=== PATIENT | female | born 1990 | race Caucasian/White ===

== ENCOUNTER 2021-06-26 15:50 | Inpatient (IN) ==
[2021-06-26] MEDS ORDERED: Acetaminophen 325 MG TABLET PO PRN (20:09)
[2021-06-26] MEDS ORDERED: Naloxone 0.4 MG/ML INJ IVP PRN (20:09)
[2021-06-26] MEDS ORDERED: Ondansetron 4 MG/2 ML VIAL IVP PRN (20:09)
[2021-06-26] MEDS ORDERED: Saliva Stimulant 44.3ml BOTTLE PO PRN (20:36)
[2021-06-26] MEDS ORDERED: Saline Nasal Spray 44 ML BOTTLE NS PRN (20:36)
[2021-06-26] MEDS ORDERED: Atropine Sulfate 1% 40 DROP/2 ML BOTTLE SL PRN (21:21)
[2021-06-26] MEDS ORDERED: Scopolamine Patch 1.5 MG PATCH.TD72 TD SCH (21:30)
[2021-06-26] MEDS: *HR* Heparin 5,000 UNIT/ML VIAL SQ SCH (21:59)
[2021-06-26] MEDS: Chlorhexidine Rinse 15 ML MOUTHWASH MM SCH (21:59)
[2021-06-26] MEDS: Melatonin 3 MG TABLET PO PRN (22:00)
[2021-06-26] MEDS: Ipratropium 1 PUFF INHALER IH SCH (23:20)
[2021-06-26] MEDS: Budesonide/Formoterol 160/4.5 1 PUFF INH IH SCH (23:20)
[2021-06-27] MEDS: Ipratropium 1 PUFF INHALER IH SCH ×4 (04:08→20:34)
[2021-06-27] MEDS: *HR* Heparin 5,000 UNIT/ML VIAL SQ SCH ×2 (05:35→17:20)
[2021-06-27 05:41] LABS: Basophils % 0.7 %; Eosinophils % 0.2 %; Hematocrit 40.4 % (35.3-44.9); Hemoglobin 12.7 g/dL (11.5-15.4); Immature Granulocytes % 1.5 % (0-4); Lymphocytes # 0.7 K/mcL (0.6-4.6); Lymphocytes % 11.5 %; Mean Corpuscular HGB Conc 31.4 g/dL (31.6-35.5); Mean Corpuscular Hemoglobin 29.3 pg (28.0-33.3); Mean Corpuscular Volume 93.1 fL (83.0-100.0); Mean Platelet Volume 11.8 fL (9.4-12.4); Monocytes # 0.1 K/mcL (0.0-1.3); Monocytes % 2.3 %; Platelet Count 194 K/mcL (140-400); Red Blood Count 4.34 M/mcL (3.82-4.97); Red Cell Distribution Width 15.5 % (11.5-14.5); Segmented Neutrophils % 83.8 %
[2021-06-27] MEDS: Budesonide/Formoterol 160/4.5 1 PUFF INH IH SCH ×2 (07:44→20:34)
[2021-06-27] MEDS: Cholecalciferol (D-3) 1,000 UNIT (25MCG) TABLET PO SCH (08:03)
[2021-06-27] MEDS: Chlorhexidine Rinse 15 ML MOUTHWASH MM SCH ×2 (08:03→23:11)
[2021-06-27] MEDS: Multivit/Ca/Min/Fe/FA 1 TAB TABLET PO SCH (08:03)
[2021-06-27] MEDS: Artificial Tears SOLN 15 ML BOTTLE BOTH EYES SCH ×4 (08:04→23:11)
[2021-06-27 08:18] LABS: Albumin 3.8 g/dL (3.5-5.7); Albumin/Globulin Ratio 1.3 (1.1-2.2); Bilirubin,Total 0.8 mg/dL (0.3-1.0); Calcium 8.1 mg/dL (8.6-10.3); Magnesium 1.8 mg/dL (1.6-2.6); Potassium 3.7 mEq/L (3.5-5.1); Total Protein 6.8 g/dL (6.4-8.9)
[2021-06-27 08:40] LABS: Thyroid Stimulating Hormone 207.768 mcIU/mL (0.340-5.600)
[2021-06-27] MEDS: 0.9 % Sodium Chloride 1,000 ML IVC SCH ×2 (17:20→23:12)
[2021-06-27] MEDS: Acetaminophen 325 MG TABLET PO PRN (19:37)
[2021-06-28] MEDS: Melatonin 3 MG TABLET PO PRN ×2 (00:30→21:44)
[2021-06-28] MEDS: Acetaminophen 325 MG TABLET PO PRN (03:13)
[2021-06-28 03:16] LABS: Basophils % 0.4 %; Hematocrit 39.6 % (35.3-44.9); Hemoglobin 12.4 g/dL (11.5-15.4); Immature Granulocytes % 1.5 % (0-4); Lymphocytes # 0.9 K/mcL (0.6-4.6); Lymphocytes % 12.1 %; Mean Corpuscular HGB Conc 31.3 g/dL (31.6-35.5); Mean Corpuscular Hemoglobin 29.7 pg (28.0-33.3); Mean Corpuscular Volume 94.7 fL (83.0-100.0); Mean Platelet Volume 11.8 fL (9.4-12.4); Monocytes # 0.2 K/mcL (0.0-1.3); Neutrophils # 6.3 K/mcL (1.6-8.9); Platelet Count 213 K/mcL (140-400); Red Blood Count 4.18 M/mcL (3.82-4.97); Red Cell Distribution Width 15.6 % (11.5-14.5); White Blood Count 7.5 K/mcL (4.3-11.1)
[2021-06-28 03:33] LABS: Albumin 3.9 g/dL (3.5-5.7); Albumin/Globulin Ratio 1.3 (1.1-2.2); Bilirubin,Total 0.6 mg/dL (0.3-1.0); Calcium 8.2 mg/dL (8.6-10.3); Magnesium 1.9 mg/dL (1.6-2.6); Phosphorous 3.4 mg/dL (2.7-4.5); Potassium 3.2 mEq/L (3.5-5.1); Total Protein 6.9 g/dL (6.4-8.9)
[2021-06-28 03:35] LABS: C-Reactive Protein 84 mg/L (Less than 10); Lactate Dehydrogenase 527 Units/L (140-271)
[2021-06-28 03:52] LABS: Ferritin 226 ng/mL (10-120)
[2021-06-28] MEDS: Ipratropium 1 PUFF INHALER IH SCH ×4 (04:24→20:21)
[2021-06-28 05:11] LABS: Platelet Estimate Normal (Normal); Reactive Lymphocytes Present (Not Present)
[2021-06-28] MEDS: *HR* Heparin 5,000 UNIT/ML VIAL SQ SCH ×2 (06:36→21:56)
[2021-06-28] MEDS: Budesonide/Formoterol 160/4.5 1 PUFF INH IH SCH ×2 (08:19→20:21)
[2021-06-28] MEDS: Chlorhexidine Rinse 15 ML MOUTHWASH MM SCH ×2 (10:32→19:56)
[2021-06-28] MEDS: 0.9 % Sodium Chloride 1,000 ML IVC SCH ×3 (10:32→23:22)
[2021-06-28] MEDS: Artificial Tears SOLN 15 ML BOTTLE BOTH EYES SCH ×4 (10:32→19:56)
[2021-06-28] MEDS: Multivit/Ca/Min/Fe/FA 1 TAB TABLET PO SCH (10:33)
[2021-06-28] MEDS: Cholecalciferol (D-3) 1,000 UNIT (25MCG) TABLET PO SCH (10:33)
[2021-06-28] MEDS ORDERED: Azithromycin 500 MG in 0.9 % Sodium Chloride 250 ML IVPB SCH (17:00)
[2021-06-28] MEDS ORDERED: cefTRIAXone 2,000 MG in 0.9 % Sodium Chloride Mini Bag 100 ML IVPB SCH (17:00)
[2021-06-28] MEDS ORDERED: *HR* Enoxaparin 150 MG/ML SYRINGE SQ SCH (17:00)
[2021-06-28] MEDS ORDERED: *HR* LORazepam 2 MG/ML VIAL IVP PRN (17:01)
[2021-06-28 17:32] LABS: ABG Base Excess 0 mEq/L (-2 to 3); ABG HCO3 25 mEq/L (21-27); ABG Oxygen Saturation 84 % (95-98); ABG PCO2 41 mmHg (35-45); ABG PH 7.39 pH Units (7.32-7.45); ABG PO2 49 mmHg (85-104); ABG TCO2 26 mEq/L (20-26)
[2021-06-28 20:16] LABS: Sodium, Urine 10.5 mEq/L
[2021-06-28] MEDS ORDERED: Ascorbic Acid 500 MG TABLET PO SCH (21:00)
[2021-06-29 02:30] LABS: Basophils % 0.3 %; Hematocrit 37.5 % (35.3-44.9); Hemoglobin 11.6 g/dL (11.5-15.4); Lymphocytes # 0.6 K/mcL (0.6-4.6); Lymphocytes % 8.4 %; Mean Corpuscular HGB Conc 30.9 g/dL (31.6-35.5); Mean Corpuscular Hemoglobin 29.3 pg (28.0-33.3); Mean Corpuscular Volume 94.7 fL (83.0-100.0); Mean Platelet Volume 11.5 fL (9.4-12.4); Monocytes # 0.2 K/mcL (0.0-1.3); Monocytes % 2.1 %; Neutrophils # 6.1 K/mcL (1.6-8.9); Platelet Count 259 K/mcL (140-400); Red Blood Count 3.96 M/mcL (3.82-4.97); Red Cell Distribution Width 15.6 % (11.5-14.5); Segmented Neutrophils % 87.2 %
[2021-06-29 02:58] LABS: Albumin 3.6 g/dL (3.5-5.7); Albumin/Globulin Ratio 1.2 (1.1-2.2); Bilirubin,Total 0.5 mg/dL (0.3-1.0); Globulin 3.1 g/dL (2.4-3.5); Magnesium 1.9 mg/dL (1.6-2.6); Phosphorous 4.2 mg/dL (2.7-4.5); Potassium 3.9 mEq/L (3.5-5.1); Total Protein 6.7 g/dL (6.4-8.9)
[2021-06-29 03:03] LABS: C-Reactive Protein 110 mg/L (Less than 10); Lactate Dehydrogenase 816 Units/L (140-271)
[2021-06-29 03:18] LABS: Ferritin 379 ng/mL (10-120)
[2021-06-29] MEDS: Ipratropium 1 PUFF INHALER IH SCH ×3 (03:47→21:03)
[2021-06-29] MEDS: Artificial Tears SOLN 15 ML BOTTLE BOTH EYES SCH (08:00)
[2021-06-29] MEDS: Cholecalciferol (D-3) 1,000 UNIT (25MCG) TABLET PO SCH (08:00)
[2021-06-29] MEDS: Chlorhexidine Rinse 15 ML MOUTHWASH MM SCH (08:00)
[2021-06-29] MEDS: 0.9 % Sodium Chloride 1,000 ML IVC SCH ×3 (08:01→15:16)
[2021-06-29] MEDS ORDERED: *HR* Rocuronium Bromide 50 MG/5 ML VIAL IVP ONE (11:50)
[2021-06-29] MEDS ORDERED: *HR* Succinylcholine 200 MG/10 ML VIAL IVP ONE (11:50)
[2021-06-29] MEDS ORDERED: *HR* Etomidate 20 MG/10 ML AMPUL IVP ONE (11:50)
[2021-06-29] MEDS ORDERED: *HR* Midazolam HCl 5 MG/5 ML VIAL IVP ONE (11:50)
[2021-06-29] MEDS ORDERED: *HR* Midazolam HCl 2 MG/2 ML VIAL IVP ONE (11:50)
[2021-06-29] MEDS ORDERED: Naloxone 0.4 MG/ML INJ IVP PRN (12:22)
[2021-06-29] MEDS ORDERED: *HR* LORazepam 2 MG/ML VIAL IVP PRN (12:24)
[2021-06-29] MEDS ORDERED: Acetaminophen 325 MG TABLET PO PRN (12:27)
[2021-06-29 12:30] LABS: ABG Base Excess -3 mEq/L (-2 to 3); ABG HCO3 24 mEq/L (21-27); ABG Oxygen Saturation 86 % (95-98); ABG PCO2 48 mmHg (35-45); ABG PO2 58 mmHg (85-104); ABG TCO2 25 mEq/L (20-26); Blood Gas Pressure Support 15 cm H2O
[2021-06-29] MEDS ORDERED: Morphine Sulfate 2 MG/ML SYRINGE IVP PRN (12:31)
[2021-06-29] MEDS ORDERED: *HR* Enoxaparin 150 MG/ML SYRINGE SQ SCH (12:45)
[2021-06-29] MEDS: Budesonide/Formoterol 160/4.5 1 PUFF INH IH SCH ×2 (15:12→21:02)
[2021-06-29] MEDS ORDERED: Lidocaine -MPF 1% 5 ML AMPUL INFILT ONE (15:22)
[2021-06-29] MEDS ORDERED: Albumin Human 5% 12.5 GM/250 ML IV.SOLN ONE (16:03)
[2021-06-29] MEDS: cefTRIAXone 2,000 MG in 0.9 % Sodium Chloride Mini Bag 100 ML IVPB SCH (16:04)
[2021-06-29] MEDS ORDERED: Norepinephrine 4 MG/254 ML IV.SOLN IVC SCH (16:15)
[2021-06-29] MEDS: Midazolam HCl 50 MG/100 ML IV.SOLN IVC SCH ×2 (16:36→23:10)
[2021-06-29] MEDS: FentaNYL (PF) 1,000 MCG/100 ML IV.SOLN IVC SCH ×2 (16:37→23:11)
[2021-06-29] MEDS: Cisatracurium 200 MG in 0.9 % Sodium Chloride 180 ML IVC SCH ×2 (16:40→21:32)
[2021-06-29] MEDS ORDERED: 0.9 % Sodium Chloride 1,000 ML ONE (17:01)
[2021-06-29] MEDS: Azithromycin 500 MG in 0.9 % Sodium Chloride 250 ML IVPB SCH (20:33)
[2021-06-29] MEDS: *HR* Enoxaparin 150 MG/ML SYRINGE SQ SCH (20:33)
[2021-06-29] MEDS: Melatonin 3 MG TABLET PO SCH (20:34)
[2021-06-29 21:05] LABS: ABG Base Excess -4 mEq/L (-2 to 3); ABG HCO3 23 mEq/L (21-27); ABG Oxygen Saturation 98 % (95-98); ABG PCO2 45 mmHg (35-45); ABG PH 7.31 pH Units (7.32-7.45); ABG PO2 121 mmHg (85-104); ABG TCO2 24 mEq/L (20-26); Blood Gas VT 450 cc
[2021-06-30] MEDS: Ipratropium 1 PUFF INHALER IH SCH ×4 (03:32→21:24)
[2021-06-30 04:08] LABS: VBG Ionized Calcium 1.14 mmol/L (1.15-1.35)
[2021-06-30 04:12] LABS: Hematocrit 35.1 % (35.3-44.9); Hemoglobin 10.9 g/dL (11.5-15.4); Mean Corpuscular HGB Conc 31.1 g/dL (31.6-35.5); Mean Corpuscular Hemoglobin 29.5 pg (28.0-33.3); Mean Corpuscular Volume 94.9 fL (83.0-100.0); Mean Platelet Volume 11.3 fL (9.4-12.4); Platelet Count 268 K/mcL (140-400); Red Cell Distribution Width 15.6 % (11.5-14.5); White Blood Count 9.7 K/mcL (4.3-11.1)
[2021-06-30 04:22] LABS: ABG Base Excess -4 mEq/L (-2 to 3); ABG HCO3 22 mEq/L (21-27); ABG Oxygen Saturation 99 % (95-98); ABG PCO2 42 mmHg (35-45); ABG PH 7.32 pH Units (7.32-7.45); ABG PO2 137 mmHg (85-104); ABG TCO2 23 mEq/L (20-26); Blood Gas Modality AF; Blood Gas VT 350 cc
[2021-06-30 04:30] LABS: Albumin 3.2 g/dL (3.5-5.7); Albumin/Globulin Ratio 1.1 (1.1-2.2); Bilirubin,Direct 0.1 mg/dL (0.0-0.2); Bilirubin,Indirect 0.2 mg/dL (0.0-1.0); Bilirubin,Total 0.3 mg/dL (0.3-1.0); Calcium 8.2 mg/dL (8.6-10.3); Magnesium 2.1 mg/dL (1.6-2.6); Phosphorous 3.5 mg/dL (2.7-4.5); Potassium 3.9 mEq/L (3.5-5.1); Total Protein 6.2 g/dL (6.4-8.9)
[2021-06-30] MEDS: Cisatracurium 200 MG in 0.9 % Sodium Chloride 180 ML IVC SCH ×4 (04:33→19:29)
[2021-06-30] MEDS: *HR* Enoxaparin 150 MG/ML SYRINGE SQ SCH ×2 (05:56→18:04)
[2021-06-30] MEDS ORDERED: Levothyroxine Sodium 200 MCG VIAL IVP SCH (06:30)
[2021-06-30] MEDS: Budesonide/Formoterol 160/4.5 1 PUFF INH IH SCH ×2 (07:30→21:24)
[2021-06-30] MEDS: Midazolam HCl 50 MG/100 ML IV.SOLN IVC SCH ×2 (08:22→17:00)
[2021-06-30] MEDS: FentaNYL (PF) 1,000 MCG/100 ML IV.SOLN IVC SCH ×2 (08:22→21:45)
[2021-06-30] MEDS ORDERED: Artificial Tears SOLN 15 ML BOTTLE BOTH EYES PRN (09:12)
[2021-06-30] MEDS: Chlorhexidine Rinse 15 ML MOUTHWASH MM SCH ×2 (10:02→19:47)
[2021-06-30] MEDS: Artificial Tears SOLN 15 ML BOTTLE BOTH EYES SCH ×3 (10:02→19:47)
[2021-06-30] MEDS: cefTRIAXone 2,000 MG in 0.9 % Sodium Chloride Mini Bag 100 ML IVPB SCH (16:20)
[2021-06-30] MEDS: Azithromycin 500 MG in 0.9 % Sodium Chloride 250 ML IVPB SCH (18:04)
[2021-06-30] MEDS: Melatonin 3 MG TABLET PO SCH (19:48)
[2021-06-30] MEDS: Pantoprazole 40 MG VIAL IVP SCH (21:15)
[2021-07-01] MEDS: Artificial Tears SOLN 15 ML BOTTLE BOTH EYES SCH ×6 (00:26→19:51)
[2021-07-01] MEDS: Cisatracurium 200 MG in 0.9 % Sodium Chloride 180 ML IVC SCH ×3 (01:03→21:45)
[2021-07-01] MEDS: Ipratropium 1 PUFF INHALER IH SCH ×4 (03:20→22:28)
[2021-07-01 03:34] LABS: VBG Ionized Calcium 1.15 mmol/L (1.15-1.35)
[2021-07-01 03:49] LABS: Hematocrit 35.8 % (35.3-44.9); Hemoglobin 10.9 g/dL (11.5-15.4); Mean Corpuscular HGB Conc 30.4 g/dL (31.6-35.5); Mean Corpuscular Hemoglobin 28.9 pg (28.0-33.3); Mean Platelet Volume 11.2 fL (9.4-12.4); Platelet Count 306 K/mcL (140-400); Red Blood Count 3.77 M/mcL (3.82-4.97); Red Cell Distribution Width 15.4 % (11.5-14.5); White Blood Count 12.2 K/mcL (4.3-11.1)
[2021-07-01 04:02] LABS: Albumin 3.2 g/dL (3.5-5.7); Albumin/Globulin Ratio 1.1 (1.1-2.2); Bilirubin,Total 0.4 mg/dL (0.3-1.0); Calcium 8.5 mg/dL (8.6-10.3); Globulin 2.8 g/dL (2.4-3.5); Magnesium 2.1 mg/dL (1.6-2.6); Phosphorous 2.8 mg/dL (2.7-4.5); Potassium 3.8 mEq/L (3.5-5.1)
[2021-07-01 04:22] LABS: ABG Base Excess -3 mEq/L (-2 to 3); ABG HCO3 22 mEq/L (21-27); ABG Oxygen Saturation 93 % (95-98); ABG PCO2 42 mmHg (35-45); ABG PH 7.34 pH Units (7.32-7.45); ABG PO2 71 mmHg (85-104); ABG TCO2 24 mEq/L (20-26); Blood Gas VT 350 cc
[2021-07-01] MEDS: *HR* Enoxaparin 150 MG/ML SYRINGE SQ SCH (05:15)
[2021-07-01] MEDS: Levothyroxine Sodium 100 MCG VIAL IM SCH (06:40)
[2021-07-01] MEDS: Budesonide/Formoterol 160/4.5 1 PUFF INH IH SCH ×2 (07:26→22:28)
[2021-07-01] MEDS: Chlorhexidine Rinse 15 ML MOUTHWASH MM SCH ×2 (07:43→19:51)
[2021-07-01] MEDS: Pantoprazole 40 MG VIAL IVP SCH (07:44)
[2021-07-01] MEDS: FentaNYL (PF) 1,000 MCG/100 ML IV.SOLN IVC SCH ×3 (08:26→23:42)
[2021-07-01] MEDS: Midazolam HCl 50 MG/100 ML IV.SOLN IVC SCH ×2 (14:40→23:13)
[2021-07-01] MEDS ORDERED: Furosemide 40 MG/4 ML VIAL IVP ONE (14:59)
[2021-07-01] MEDS ORDERED: Perflutren Lipid Microsphere 1.3 ML in 0.9 % Sodium Chloride 8.7 ML IVP PRN (15:10)
[2021-07-01 16:36] LABS: Hematocrit 35.9 % (35.3-44.9); Mean Corpuscular HGB Conc 30.6 g/dL (31.6-35.5); Mean Corpuscular Hemoglobin 29.2 pg (28.0-33.3); Mean Corpuscular Volume 95.2 fL (83.0-100.0); Mean Platelet Volume 10.8 fL (9.4-12.4); Platelet Count 322 K/mcL (140-400); Red Blood Count 3.77 M/mcL (3.82-4.97); Red Cell Distribution Width 15.7 % (11.5-14.5); White Blood Count 12.1 K/mcL (4.3-11.1)
[2021-07-01] MEDS: cefTRIAXone 2,000 MG in 0.9 % Sodium Chloride Mini Bag 100 ML IVPB SCH (16:53)
[2021-07-01 16:54] LABS: INR 1.2
[2021-07-01 17:16] LABS: Heparin anti-factor XA UFH > 2.00 IU/mL (0.30-0.70)
[2021-07-01] MEDS ORDERED: *HR* Heparin 5,000 UNIT/ML VIAL IVP PRN ×2 (18:00)
[2021-07-01] MEDS: Azithromycin 500 MG in 0.9 % Sodium Chloride 250 ML IVPB SCH (18:24)
[2021-07-01] MEDS: Melatonin 3 MG TABLET PO SCH (19:51)
[2021-07-02] MEDS: Artificial Tears SOLN 15 ML BOTTLE BOTH EYES SCH ×7 (03:11→23:13)
[2021-07-02 03:26] LABS: ABG Ionized Calcium 1.16 mmol/L (1.15-1.35)
[2021-07-02 03:29] LABS: Hematocrit 34.4 % (35.3-44.9); Hemoglobin 10.8 g/dL (11.5-15.4); Mean Corpuscular HGB Conc 31.4 g/dL (31.6-35.5); Mean Corpuscular Volume 95.6 fL (83.0-100.0); Mean Platelet Volume 11.1 fL (9.4-12.4); Platelet Count 305 K/mcL (140-400); Red Cell Distribution Width 15.5 % (11.5-14.5); White Blood Count 12.2 K/mcL (4.3-11.1)
[2021-07-02 03:50] LABS: Albumin/Globulin Ratio 1.1 (1.1-2.2); Bilirubin,Total 0.5 mg/dL (0.3-1.0); Calcium 8.4 mg/dL (8.6-10.3); Globulin 2.8 g/dL (2.4-3.5); Heparin anti-factor XA UFH 1.39 IU/mL (0.30-0.70); Magnesium 2.1 mg/dL (1.6-2.6); Potassium 3.6 mEq/L (3.5-5.1); Total Protein 5.8 g/dL (6.4-8.9)
[2021-07-02] MEDS: Ipratropium 1 PUFF INHALER IH SCH ×4 (04:36→20:09)
[2021-07-02 04:41] LABS: ABG Base Excess -1 mEq/L (-2 to 3); ABG HCO3 24 mEq/L (21-27); ABG Oxygen Saturation 87 % (95-98); ABG PCO2 44 mmHg (35-45); ABG PH 7.35 pH Units (7.32-7.45); ABG PO2 57 mmHg (85-104); ABG TCO2 26 mEq/L (20-26); Blood Gas VT 350 cc
[2021-07-02] MEDS: Levothyroxine Sodium 100 MCG VIAL IM SCH (06:06)
[2021-07-02] MEDS: Cisatracurium 200 MG in 0.9 % Sodium Chloride 180 ML IVC SCH ×2 (06:58→15:06)
[2021-07-02] MEDS: FentaNYL (PF) 1,000 MCG/100 ML IV.SOLN IVC SCH ×3 (07:32→23:13)
[2021-07-02] MEDS: Chlorhexidine Rinse 15 ML MOUTHWASH MM SCH ×2 (07:40→20:43)
[2021-07-02] MEDS: Pantoprazole 40 MG VIAL IVP SCH (07:40)
[2021-07-02] MEDS: Budesonide/Formoterol 160/4.5 1 PUFF INH IH SCH ×2 (07:48→20:10)
[2021-07-02] MEDS: Midazolam HCl 50 MG/100 ML IV.SOLN IVC SCH ×2 (09:20→23:12)
[2021-07-02] MEDS: Heparin 25,000UNIT/250ML 1/2NS 25,000 UNIT/250 ML IV.SOLN IVC SCH ×3 (14:09→20:41)
[2021-07-02] MEDS: Norepinephrine 4 MG/254 ML IV.SOLN IVC SCH (14:25)
[2021-07-02] MEDS: cefTRIAXone 2,000 MG in 0.9 % Sodium Chloride Mini Bag 100 ML IVPB SCH (17:03)
[2021-07-02] MEDS: Azithromycin 500 MG in 0.9 % Sodium Chloride 250 ML IVPB SCH (18:07)
[2021-07-02] MEDS: Melatonin 3 MG TABLET PO SCH (20:41)
[2021-07-03] MEDS: Cisatracurium 200 MG in 0.9 % Sodium Chloride 180 ML IVC SCH ×3 (01:42→17:52)
[2021-07-03] MEDS: Norepinephrine 4 MG/254 ML IV.SOLN IVC SCH ×2 (01:53→15:14)
[2021-07-03] MEDS: Ipratropium 1 PUFF INHALER IH SCH ×4 (03:50→20:06)
[2021-07-03] MEDS: Artificial Tears SOLN 15 ML BOTTLE BOTH EYES SCH ×5 (03:54→19:42)
[2021-07-03 04:15] LABS: ABG Base Excess -3 mEq/L (-2 to 3); ABG HCO3 26 mEq/L (21-27); ABG Oxygen Saturation 84 % (95-98); ABG PCO2 63 mmHg (35-45); ABG PH 7.22 pH Units (7.32-7.45); ABG PO2 60 mmHg (85-104); ABG TCO2 28 mEq/L (20-26); Blood Gas VT 350 cc
[2021-07-03] MEDS: Heparin 25,000UNIT/250ML 1/2NS 25,000 UNIT/250 ML IV.SOLN IVC SCH (04:30)
[2021-07-03 05:23] LABS: VBG Ionized Calcium 1.15 mmol/L (1.15-1.35)
[2021-07-03 05:36] LABS: Heparin anti-factor XA UFH 1.13 IU/mL (0.30-0.70)
[2021-07-03 05:38] LABS: Hematocrit 36.8 % (35.3-44.9); Hemoglobin 10.7 g/dL (11.5-15.4); Mean Corpuscular HGB Conc 29.1 g/dL (31.6-35.5); Mean Corpuscular Hemoglobin 28.8 pg (28.0-33.3); Mean Corpuscular Volume 99.2 fL (83.0-100.0); Mean Platelet Volume 11.4 fL (9.4-12.4); Platelet Count 307 K/mcL (140-400); Red Blood Count 3.71 M/mcL (3.82-4.97); Red Cell Distribution Width 15.8 % (11.5-14.5); White Blood Count 14.7 K/mcL (4.3-11.1)
[2021-07-03 05:55] LABS: Albumin 2.8 g/dL (3.5-5.7); Bilirubin,Direct 0.3 mg/dL (0.0-0.2); Bilirubin,Indirect 0.3 mg/dL (0.0-1.0); Bilirubin,Total 0.6 mg/dL (0.3-1.0); Calcium 8.2 mg/dL (8.6-10.3); Globulin 2.7 g/dL (2.4-3.5); Magnesium 2.1 mg/dL (1.6-2.6); Phosphorous 3.6 mg/dL (2.7-4.5); Total Protein 5.5 g/dL (6.4-8.9)
[2021-07-03] MEDS: Budesonide/Formoterol 160/4.5 1 PUFF INH IH SCH ×2 (07:55→20:07)
[2021-07-03] MEDS: Dexamethasone Sodium Phos/PF 10 MG/ML VIAL IVP SCH (08:00)
[2021-07-03] MEDS: Levothyroxine Sodium 100 MCG VIAL IM SCH (08:00)
[2021-07-03] MEDS: Chlorhexidine Rinse 15 ML MOUTHWASH MM SCH ×2 (08:01→19:42)
[2021-07-03] MEDS: Pantoprazole 40 MG VIAL IVP SCH (08:01)
[2021-07-03] MEDS: FentaNYL (PF) 1,000 MCG/100 ML IV.SOLN IVC SCH ×2 (09:28→18:07)
[2021-07-03] MEDS: Midazolam HCl 50 MG/100 ML IV.SOLN IVC SCH ×2 (09:41→21:15)
[2021-07-03 12:57] LABS: Sodium, Urine 10.1 mEq/L
[2021-07-03 13:17] LABS: Bilirubin,Urine Negative (Negative); Blood,Urine Large (Negative); Budding Yeast,Urine Many per hpf (None Seen); Clarity,Urine Ex.Turbid (Clear); Color,Urine Yellow (Yellow); Glucose,Urine (UA) Normal (Normal); Ketones,Urine Negative (Negative); Leukocyte Esterase,Urine Moderate (Negative); Mucus,Urine Few per lpf (None-Few); Nitrite,Urine Negative (Negative); Protein,Urine 70 mg/dL (Neg-Trace); RBC,Urine TNTC per hpf (0-3); Renal Epithelial Cells,Urine Few per hpf (None-Few); Specific Gravity,Urine 1.023 (1.010-1.025); Squamous Epithelial Cell,Urine Moderate per hpf (None-Few); Transitional Epi Cells,Urine Few per hpf (None-Few); Uric Acid Crystals,Urine Present per hpf; Urobilinogen,Urine Normal (Normal); WBC,Urine 50-100 per hpf (0-3)
[2021-07-03] MEDS ORDERED: *HR* Dextrose 50 % in Water (Syg) 50 ML SYRINGE IVP PRN (15:58)
[2021-07-03] MEDS ORDERED: Dextrose Gel 15 GM/37.5 ML TUBE PO PRN ×2 (15:58)
[2021-07-03] MEDS ORDERED: D5% in Water 1,000 ML IVC PRN (15:58)
[2021-07-03] MEDS: cefTRIAXone 2,000 MG in 0.9 % Sodium Chloride Mini Bag 100 ML IVPB SCH (17:03)
[2021-07-03] MEDS: Insulin LISPRO 300 UNITS/3 ML VIAL SUBQ SCH (17:51)
[2021-07-03] MEDS: Azithromycin 500 MG in 0.9 % Sodium Chloride 250 ML IVPB SCH (17:52)
[2021-07-04] MEDS: Cisatracurium 200 MG in 0.9 % Sodium Chloride 180 ML IVC SCH ×4 (01:00→20:09)
[2021-07-04] MEDS: Insulin LISPRO 300 UNITS/3 ML VIAL SUBQ SCH ×5 (02:16→21:18)
[2021-07-04] MEDS: Artificial Tears SOLN 15 ML BOTTLE BOTH EYES SCH ×6 (02:16→20:10)
[2021-07-04] MEDS: Heparin 25,000UNIT/250ML 1/2NS 25,000 UNIT/250 ML IV.SOLN IVC SCH ×2 (02:41→11:30)
[2021-07-04] MEDS: FentaNYL (PF) 1,000 MCG/100 ML IV.SOLN IVC SCH ×3 (02:50→21:20)
[2021-07-04] MEDS: Ipratropium 1 PUFF INHALER IH SCH ×4 (03:06→20:11)
[2021-07-04 03:44] LABS: VBG Ionized Calcium 1.18 mmol/L (1.15-1.35)
[2021-07-04 03:47] LABS: Hematocrit 34.9 % (35.3-44.9); Hemoglobin 10.5 g/dL (11.5-15.4); Mean Corpuscular HGB Conc 30.1 g/dL (31.6-35.5); Mean Corpuscular Hemoglobin 29.5 pg (28.0-33.3); Mean Platelet Volume 11.2 fL (9.4-12.4); Platelet Count 298 K/mcL (140-400); Red Blood Count 3.56 M/mcL (3.82-4.97); Red Cell Distribution Width 15.8 % (11.5-14.5); White Blood Count 12.6 K/mcL (4.3-11.1)
[2021-07-04 03:58] LABS: ABG Base Excess -2 mEq/L (-2 to 3); ABG HCO3 24 mEq/L (21-27); ABG Oxygen Saturation 95 % (95-98); ABG PCO2 48 mmHg (35-45); ABG PH 7.32 pH Units (7.32-7.45); ABG PO2 82 mmHg (85-104); ABG TCO2 26 mEq/L (20-26); Blood Gas VT 360 cc
[2021-07-04 04:02] LABS: Albumin 2.3 g/dL (3.5-5.7); Albumin/Globulin Ratio 0.9 (1.1-2.2); Bilirubin,Direct 0.3 mg/dL (0.0-0.2); Bilirubin,Indirect 0.3 mg/dL (0.0-1.0); Bilirubin,Total 0.6 mg/dL (0.3-1.0); Globulin 2.6 g/dL (2.4-3.5); Magnesium 1.8 mg/dL (1.6-2.6); Phosphorous 2.8 mg/dL (2.7-4.5); Total Protein 4.9 g/dL (6.4-8.9)
[2021-07-04 05:36] LABS: Calcium 7.1 mg/dL (8.6-10.3); Potassium 3.5 mEq/L (3.5-5.1)
[2021-07-04] MEDS: Levothyroxine Sodium 100 MCG VIAL IVP SCH ×2 (06:07→06:19)
[2021-07-04] MEDS: Norepinephrine 4 MG/254 ML IV.SOLN IVC SCH ×3 (07:25→20:43)
[2021-07-04] MEDS: Budesonide/Formoterol 160/4.5 1 PUFF INH IH SCH ×2 (07:49→20:11)
[2021-07-04] MEDS: Pantoprazole 40 MG VIAL IVP SCH (07:59)
[2021-07-04] MEDS: Chlorhexidine Rinse 15 ML MOUTHWASH MM SCH ×2 (07:59→20:10)
[2021-07-04] MEDS: Dexamethasone Sodium Phos/PF 10 MG/ML VIAL IVP SCH (08:01)
[2021-07-04] MEDS ORDERED: Bumetanide 1 MG/4 ML VIAL IVP ONE (08:17)
[2021-07-04] MEDS ORDERED: Lidocaine -MPF 1% 5 ML AMPUL INFILT ONE (09:31)
[2021-07-04] MEDS: Midazolam HCl 50 MG/100 ML IV.SOLN IVC SCH ×2 (09:57→21:34)
[2021-07-04] MEDS ORDERED: Heparin 1,000 UNITS/500 mL 500 ML ONE (13:22)
[2021-07-04] MEDS ORDERED: *HR* Heparin 5,000 UNIT/ML VIAL ONE (15:21)
[2021-07-04] MEDS ORDERED: 0.9 % Sodium Chloride 1,000 ML ONE (17:54)
[2021-07-04] MEDS ORDERED: Calcium Gluconate 1gm/50mL 1 GM/50 ML BAG IVPB PRN ×2 (18:19)
[2021-07-04] MEDS ORDERED: SODIUM CITRATE 500 ML CRRT SCH (18:30)
[2021-07-04] MEDS: SODIUM CITRATE 500 ML CRRT SCH (19:49)
[2021-07-04] MEDS: Calcium Chloride 4,000 MG in 0.9 % Sodium Chloride 1,000 ML CRRT SCH (19:50)
[2021-07-04 19:55] LABS: ABG Ionized Calcium 1.18 mmol/L (1.15-1.35)
[2021-07-04 20:07] LABS: INR 1.1; Prothrombin Time 12.7 Seconds (9.4-12.1)
[2021-07-04 20:08] LABS: Activated Partial Thrombo Time 34.9 Seconds (26.0-36.0)
[2021-07-04] MEDS: 0.9 % Sodium Chloride 1,000 ML PRIME SCH (20:12)
[2021-07-04 20:14] LABS: Calcium 8.3 mg/dL (8.6-10.3)
[2021-07-04] MEDS: PrismaSATE BGK 4/2.5 5,000 ML CRRT SCH ×2 (21:02)
[2021-07-05] MEDS: Heparin 25,000UNIT/250ML 1/2NS 25,000 UNIT/250 ML IV.SOLN IVC SCH ×3 (00:07→20:08)
[2021-07-05] MEDS: Artificial Tears SOLN 15 ML BOTTLE BOTH EYES SCH ×7 (00:07→23:01)
[2021-07-05] MEDS: Insulin LISPRO 300 UNITS/3 ML VIAL SUBQ SCH ×7 (00:20→23:01)
[2021-07-05] MEDS: PrismaSATE BGK 4/2.5 5,000 ML CRRT SCH ×16 (01:30→23:09)
[2021-07-05] MEDS ORDERED: 0.9 % Sodium Chloride 1,000 ML ONE ×2 (02:50→20:58)
[2021-07-05] MEDS: Cisatracurium 200 MG in 0.9 % Sodium Chloride 180 ML IVC SCH ×5 (03:02→23:01)
[2021-07-05] MEDS: Ipratropium 1 PUFF INHALER IH SCH ×4 (03:18→20:34)
[2021-07-05 03:56] LABS: ABG Ionized Calcium 1.14 mmol/L (1.15-1.35)
[2021-07-05 04:15] LABS: ABG Base Excess -3 mEq/L (-2 to 3); ABG HCO3 23 mEq/L (21-27); ABG Oxygen Saturation 94 % (95-98); ABG PCO2 47 mmHg (35-45); ABG PO2 79 mmHg (85-104); ABG TCO2 25 mEq/L (20-26); Blood Gas VT 400 cc
[2021-07-05 04:17] LABS: Albumin 2.7 g/dL (3.5-5.7); Albumin/Globulin Ratio 0.8 (1.1-2.2); Bilirubin,Direct 0.8 mg/dL (0.0-0.2); Bilirubin,Indirect 0.4 mg/dL (0.0-1.0); Bilirubin,Total 1.2 mg/dL (0.3-1.0); Globulin 3.2 g/dL (2.4-3.5); Magnesium 2.1 mg/dL (1.6-2.6); Phosphorous 4.1 mg/dL (2.7-4.5); Total Protein 5.9 g/dL (6.4-8.9)
[2021-07-05 05:27] LABS: Potassium 4.1 mEq/L (3.5-5.1)
[2021-07-05 05:28] LABS: Calcium 8.3 mg/dL (8.6-10.3)
[2021-07-05] MEDS: Levothyroxine Sodium 100 MCG VIAL IVP SCH (06:12)
[2021-07-05] MEDS: FentaNYL (PF) 1,000 MCG/100 ML IV.SOLN IVC SCH ×3 (06:52→19:36)
[2021-07-05] MEDS: Midazolam HCl 50 MG/100 ML IV.SOLN IVC SCH ×2 (07:35→18:08)
[2021-07-05] MEDS: Chlorhexidine Rinse 15 ML MOUTHWASH MM SCH ×2 (07:57→19:36)
[2021-07-05] MEDS: Pantoprazole 40 MG VIAL IVP SCH (07:57)
[2021-07-05] MEDS: Dexamethasone Sodium Phos/PF 10 MG/ML VIAL IVP SCH (07:57)
[2021-07-05] MEDS: Budesonide/Formoterol 160/4.5 1 PUFF INH IH SCH ×2 (08:16→20:35)
[2021-07-05] MEDS: 0.9 % Sodium Chloride 1,000 ML PRIME SCH (09:44)
[2021-07-05] MEDS: Norepinephrine 4 MG/254 ML IV.SOLN IVC SCH (11:26)
[2021-07-05] MEDS ORDERED: Furosemide 40 MG/4 ML VIAL ONE (12:00)
[2021-07-05 12:13] LABS: ABG Base Excess -3 mEq/L (-2 to 3); ABG HCO3 25 mEq/L (21-27); ABG Oxygen Saturation 63 % (95-98); ABG PCO2 60 mmHg (35-45); ABG PH 7.24 pH Units (7.32-7.45); ABG PO2 39 mmHg (85-104); ABG TCO2 27 mEq/L (20-26); Blood Gas Modality ASSIST CONTROL; Blood Gas VT 360 cc
[2021-07-05] MEDS: Docusate Oral Soln 100 MG/10 ML UDC GTUBE SCH ×2 (12:29→19:36)
[2021-07-05] MEDS: Insulin DETEMIR 100 UNIT/ML X5UNITS SUBQ SCH ×2 (15:43→19:34)
[2021-07-05] MEDS: Calcium Chloride 4,000 MG in 0.9 % Sodium Chloride 1,000 ML CRRT SCH (18:35)
[2021-07-05] MEDS: SODIUM CITRATE 500 ML CRRT SCH (18:36)
[2021-07-06] MEDS: FentaNYL (PF) 1,000 MCG/100 ML IV.SOLN IVC SCH ×5 (00:01→22:40)
[2021-07-06] MEDS: PrismaSATE BGK 4/2.5 5,000 ML CRRT SCH ×16 (00:08→22:39)
[2021-07-06 00:53] LABS: ABG Base Excess -2 mEq/L (-2 to 3); ABG HCO3 24 mEq/L (21-27); ABG Oxygen Saturation 97 % (95-98); ABG PCO2 42 mmHg (35-45); ABG PH 7.36 pH Units (7.32-7.45); ABG PO2 92 mmHg (85-104); ABG TCO2 25 mEq/L (20-26); Blood Gas Modality ASSIST CONTROL; Blood Gas VT 450 cc
[2021-07-06 03:08] LABS: VBG Ionized Calcium 1.11 mmol/L (1.15-1.35)
[2021-07-06 03:09] LABS: Platelet Count 227 K/mcL (140-400)
[2021-07-06] MEDS: Artificial Tears SOLN 15 ML BOTTLE BOTH EYES SCH ×6 (03:09→23:06)
[2021-07-06] MEDS: Midazolam HCl 50 MG/100 ML IV.SOLN IVC SCH ×2 (03:10→14:17)
[2021-07-06] MEDS: Cisatracurium 200 MG in 0.9 % Sodium Chloride 180 ML IVC SCH ×5 (03:10→20:17)
[2021-07-06 03:11] LABS: Hematocrit 37.5 % (35.3-44.9); Hemoglobin 11.7 g/dL (11.5-15.4); Mean Corpuscular HGB Conc 31.2 g/dL (31.6-35.5); Mean Corpuscular Volume 96.2 fL (83.0-100.0); Mean Platelet Volume 11.9 fL (9.4-12.4); Nucleated Red Blood Cells 0.7 /100 WBC (0); Red Cell Distribution Width 16.1 % (11.5-14.5)
[2021-07-06 03:14] LABS: White Blood Count 34.5 K/mcL (4.3-11.1)
[2021-07-06] MEDS: Insulin LISPRO 300 UNITS/3 ML VIAL SUBQ SCH ×6 (03:16→23:07)
[2021-07-06 03:27] LABS: Albumin/Globulin Ratio 0.8 (1.1-2.2); Bilirubin,Direct 0.8 mg/dL (0.0-0.2); Bilirubin,Indirect 0.7 mg/dL (0.0-1.0); Bilirubin,Total 1.5 mg/dL (0.3-1.0); Globulin 3.8 g/dL (2.4-3.5); Magnesium 2.3 mg/dL (1.6-2.6); Phosphorous 3.5 mg/dL (2.7-4.5); Total Protein 6.8 g/dL (6.4-8.9)
[2021-07-06 04:19] LABS: Lymphocytes # 6.6 K/mcL (0.6-4.6); Monocytes # 0.7 K/mcL (0.0-1.3); Neutrophils # 27.3 K/mcL (1.6-8.9)
[2021-07-06 04:20] LABS: Platelet Estimate Normal (Normal); Reactive Lymphocytes Present (Not Present)
[2021-07-06] MEDS: Ipratropium 1 PUFF INHALER IH SCH ×4 (04:20→20:19)
[2021-07-06 04:23] LABS: Potassium 4.1 mEq/L (3.5-5.1)
[2021-07-06 04:24] LABS: Calcium 8.4 mg/dL (8.6-10.3)
[2021-07-06 04:32] LABS: ABG Base Excess -3 mEq/L (-2 to 3); ABG HCO3 23 mEq/L (21-27); ABG Oxygen Saturation 95 % (95-98); ABG PCO2 46 mmHg (35-45); ABG PH 7.31 pH Units (7.32-7.45); ABG PO2 84 mmHg (85-104); ABG TCO2 25 mEq/L (20-26); Blood Gas Modality ASSIST CONTROL; Blood Gas VT 400 cc
[2021-07-06] MEDS: Levothyroxine Sodium 100 MCG VIAL IVP SCH (05:25)
[2021-07-06] MEDS ORDERED: Isovue-370 500 ML BOTTLE IVP ONE (07:37)
[2021-07-06] MEDS: Budesonide/Formoterol 160/4.5 1 PUFF INH IH SCH ×2 (08:00→20:19)
[2021-07-06] MEDS: Pantoprazole 40 MG VIAL IVP SCH (09:05)
[2021-07-06] MEDS: Docusate Oral Soln 100 MG/10 ML UDC GTUBE SCH ×2 (09:05→20:07)
[2021-07-06] MEDS: Chlorhexidine Rinse 15 ML MOUTHWASH MM SCH ×2 (09:06→20:07)
[2021-07-06] MEDS: Piperacillin/Tazobactam 3.375 GM in 0.9 % Sodium Chloride Mini Bag 100 ML IVPB SCH ×3 (09:06→23:07)
[2021-07-06] MEDS: Dexamethasone Sodium Phos/PF 10 MG/ML VIAL IVP SCH (09:06)
[2021-07-06] MEDS: Insulin DETEMIR 100 UNIT/ML X5UNITS SUBQ SCH ×2 (09:08→19:33)
[2021-07-06] MEDS ORDERED: Vancomycin 2,000 MG/520 ML IV.SOLN IVPB ONE (10:00)
[2021-07-06 10:35] LABS: Thyroid Stimulating Hormone 7.724 mcIU/mL (0.340-5.600)
[2021-07-06 10:37] LABS: Triiodothyronine (T3) Free 2.68 pg/mL (2.50-3.90)
[2021-07-06 10:44] LABS: Bilirubin,Urine Negative (Negative); Blood,Urine Large (Negative); Clarity,Urine Ex.Turbid (Clear); Color,Urine Dark-Yellow (Yellow); Glucose,Urine (UA) Normal (Normal); Ketones,Urine Negative (Negative); Leukocyte Esterase,Urine Small (Negative); Nitrite,Urine Negative (Negative); PH,Urine 5.5 pH Units (5.0-8.0); Protein,Urine 70 mg/dL (Neg-Trace); Specific Gravity,Urine 1.027 (1.010-1.025); Urobilinogen,Urine Normal (Normal)
[2021-07-06 10:51] LABS: RBC,Urine 50-100 per hpf (0-3)
[2021-07-06 10:53] LABS: Budding Yeast,Urine Many per hpf (None Seen)
[2021-07-06 10:54] LABS: Bacteria,Urine Few per hpf (None-Few); Squamous Epithelial Cell,Urine Few per hpf (None-Few)
[2021-07-06 10:55] LABS: Granular Casts,Urine Few per lpf (None Seen); Transitional Epi Cells,Urine Few per hpf (None-Few)
[2021-07-06] MEDS ORDERED: 0.9 % Sodium Chloride 1,000 ML ONE (11:48)
[2021-07-06] MEDS: Calcium Chloride 4,000 MG in 0.9 % Sodium Chloride 1,000 ML CRRT SCH (17:45)
[2021-07-06] MEDS: SODIUM CITRATE 500 ML CRRT SCH (17:45)
[2021-07-06] MEDS: Heparin 25,000UNIT/250ML 1/2NS 25,000 UNIT/250 ML IV.SOLN IVC SCH ×2 (18:31→23:18)
[2021-07-06] MEDS: Norepinephrine 4 MG/254 ML IV.SOLN IVC SCH ×2 (20:09)
[2021-07-07] MEDS: Cisatracurium 200 MG in 0.9 % Sodium Chloride 180 ML IVC SCH ×6 (00:06→22:07)
[2021-07-07] MEDS: Midazolam HCl 50 MG/100 ML IV.SOLN IVC SCH ×4 (00:06→18:33)
[2021-07-07] MEDS: PrismaSATE BGK 4/2.5 5,000 ML CRRT SCH ×12 (00:07→22:25)
[2021-07-07] MEDS: Artificial Tears SOLN 15 ML BOTTLE BOTH EYES SCH ×6 (03:07→23:06)
[2021-07-07] MEDS: FentaNYL (PF) 1,000 MCG/100 ML IV.SOLN IVC SCH ×4 (03:07→19:30)
[2021-07-07] MEDS: Insulin LISPRO 300 UNITS/3 ML VIAL SUBQ SCH ×6 (03:07→23:07)
[2021-07-07 03:14] LABS: VBG Ionized Calcium 1.14 mmol/L (1.15-1.35)
[2021-07-07 03:15] LABS: Hematocrit 35.6 % (35.3-44.9); Mean Corpuscular HGB Conc 30.9 g/dL (31.6-35.5); Mean Corpuscular Hemoglobin 29.6 pg (28.0-33.3); Mean Platelet Volume 12.1 fL (9.4-12.4); Nucleated Red Blood Cells 0.8 /100 WBC (0); Platelet Count 166 K/mcL (140-400); Red Blood Count 3.71 M/mcL (3.82-4.97); Red Cell Distribution Width 16.3 % (11.5-14.5); White Blood Count 29.2 K/mcL (4.3-11.1)
[2021-07-07 03:31] LABS: Albumin 2.9 g/dL (3.5-5.7); Albumin/Globulin Ratio 0.8 (1.1-2.2); Bilirubin,Direct 1.3 mg/dL (0.0-0.2); Bilirubin,Indirect 0.8 mg/dL (0.0-1.0); Bilirubin,Total 2.1 mg/dL (0.3-1.0); Globulin 3.8 g/dL (2.4-3.5); Magnesium 2.6 mg/dL (1.6-2.6); Phosphorous 3.8 mg/dL (2.7-4.5); Total Protein 6.7 g/dL (6.4-8.9)
[2021-07-07 03:32] LABS: Albumin 2.9 g/dL (3.5-5.7); Albumin/Globulin Ratio 0.8 (1.1-2.2); Bilirubin,Total 2.1 mg/dL (0.3-1.0); Calcium 8.5 mg/dL (8.6-10.3); Globulin 3.8 g/dL (2.4-3.5); Potassium 4.5 mEq/L (3.5-5.1); Total Protein 6.7 g/dL (6.4-8.9)
[2021-07-07] MEDS: Ipratropium 1 PUFF INHALER IH SCH ×4 (04:18→20:21)
[2021-07-07 04:28] LABS: ABG Base Excess -5 mEq/L (-2 to 3); ABG HCO3 22 mEq/L (21-27); ABG Oxygen Saturation 99 % (95-98); ABG PCO2 46 mmHg (35-45); ABG PH 7.29 pH Units (7.32-7.45); ABG PO2 163 mmHg (85-104); ABG TCO2 23 mEq/L (20-26); Blood Gas Modality ASSIST CONTROL; Blood Gas VT 380 cc
[2021-07-07 04:48] LABS: Lymphocytes # 2.3 K/mcL (0.6-4.6); Monocytes # 0.3 K/mcL (0.0-1.3); Neutrophils # 26.6 K/mcL (1.6-8.9)
[2021-07-07 04:49] LABS: Platelet Estimate Normal (Normal); Reactive Lymphocytes Present (Not Present)
[2021-07-07] MEDS: Levothyroxine Sodium 100 MCG VIAL IVP SCH (06:11)
[2021-07-07] MEDS ORDERED: Piperacillin/Tazobactam 3.375 GM VIAL ONE (07:42)
[2021-07-07] MEDS: Budesonide/Formoterol 160/4.5 1 PUFF INH IH SCH ×2 (07:48→20:21)
[2021-07-07] MEDS: Piperacillin/Tazobactam 3.375 GM in 0.9 % Sodium Chloride Mini Bag 100 ML IVPB SCH ×3 (07:55→23:06)
[2021-07-07] MEDS: Docusate Oral Soln 100 MG/10 ML UDC GTUBE SCH ×2 (08:43→19:29)
[2021-07-07] MEDS: Chlorhexidine Rinse 15 ML MOUTHWASH MM SCH ×2 (08:43→19:30)
[2021-07-07] MEDS: Dexamethasone Sodium Phos/PF 10 MG/ML VIAL IVP SCH (08:43)
[2021-07-07] MEDS: Pantoprazole 40 MG VIAL IVP SCH (08:43)
[2021-07-07] MEDS: Insulin DETEMIR 100 UNIT/ML X5UNITS SUBQ SCH ×2 (08:44→20:05)
[2021-07-07] MEDS ORDERED: Vancomycin 2,000 MG/520 ML IV.SOLN IVPB ONE (13:00)
[2021-07-07] MEDS: Heparin 25,000UNIT/250ML 1/2NS 25,000 UNIT/250 ML IV.SOLN IVC SCH ×2 (16:37→23:07)
[2021-07-07] MEDS ORDERED: 0.9 % Sodium Chloride 500 ML ONE (17:01)
[2021-07-07] MEDS: Norepinephrine 4 MG/254 ML IV.SOLN IVC SCH ×2 (18:29→19:31)
[2021-07-07] MEDS: Calcium Chloride 4,000 MG in 0.9 % Sodium Chloride 1,000 ML CRRT SCH (18:30)
[2021-07-07] MEDS: SODIUM CITRATE 500 ML CRRT SCH (18:30)
[2021-07-08] MEDS: FentaNYL (PF) 1,000 MCG/100 ML IV.SOLN IVC SCH ×5 (00:43→23:19)
[2021-07-08] MEDS: Cisatracurium 200 MG in 0.9 % Sodium Chloride 180 ML IVC SCH ×5 (02:06→20:00)
[2021-07-08] MEDS: PrismaSATE BGK 4/2.5 5,000 ML CRRT SCH ×12 (02:07→22:13)
[2021-07-08] MEDS: Artificial Tears SOLN 15 ML BOTTLE BOTH EYES SCH ×6 (03:07→23:55)
[2021-07-08] MEDS: Insulin LISPRO 300 UNITS/3 ML VIAL SUBQ SCH ×6 (03:07→23:56)
[2021-07-08 03:11] LABS: Hemoglobin 11.2 g/dL (11.5-15.4); Mean Platelet Volume 12.8 fL (9.4-12.4); Nucleated Red Blood Cells 1.9 /100 WBC (0)
[2021-07-08 03:12] LABS: VBG Ionized Calcium 1.14 mmol/L (1.15-1.35)
[2021-07-08 03:12] LABS: Hematocrit 36.4 % (35.3-44.9); Mean Corpuscular HGB Conc 30.8 g/dL (31.6-35.5); Mean Corpuscular Volume 97.6 fL (83.0-100.0); Platelet Count 179 K/mcL (140-400); Red Blood Count 3.73 M/mcL (3.82-4.97); Red Cell Distribution Width 16.6 % (11.5-14.5)
[2021-07-08 03:16] LABS: White Blood Count 50.2 K/mcL (4.3-11.1)
[2021-07-08 03:30] LABS: Albumin 3.1 g/dL (3.5-5.7); Albumin/Globulin Ratio 0.8 (1.1-2.2); Bilirubin,Total 3.2 mg/dL (0.3-1.0); Calcium 8.5 mg/dL (8.6-10.3); Magnesium 2.8 mg/dL (1.6-2.6); Potassium 4.8 mEq/L (3.5-5.1); Total Protein 7.1 g/dL (6.4-8.9)
[2021-07-08 03:34] LABS: Neutrophils # 41.2 K/mcL (1.6-8.9); Platelet Estimate Normal (Normal)
[2021-07-08 03:35] LABS: Polychromasia 1+ (Not Present); Smudge Cells Present (Not Present); Vancomycin,Trough 23 mcg/mL (5-10)
[2021-07-08] MEDS: Midazolam HCl 50 MG/100 ML IV.SOLN IVC SCH ×3 (03:37→15:30)
[2021-07-08] MEDS: Ipratropium 1 PUFF INHALER IH SCH ×4 (03:49→19:26)
[2021-07-08 04:03] LABS: ABG Base Excess -4 mEq/L (-2 to 3); ABG HCO3 23 mEq/L (21-27); ABG Oxygen Saturation 97 % (95-98); ABG PCO2 48 mmHg (35-45); ABG PH 7.29 pH Units (7.32-7.45); ABG PO2 101 mmHg (85-104); ABG TCO2 25 mEq/L (20-26); Blood Gas Modality ASSIST CONTROL; Blood Gas VT 380 cc
[2021-07-08] MEDS: Levothyroxine Sodium 100 MCG VIAL IVP SCH (05:37)
[2021-07-08] MEDS: Chlorhexidine Rinse 15 ML MOUTHWASH MM SCH ×2 (08:45→20:48)
[2021-07-08] MEDS: Dexamethasone Sodium Phos/PF 10 MG/ML VIAL IVP SCH (08:45)
[2021-07-08] MEDS: Pantoprazole 40 MG VIAL IVP SCH (08:45)
[2021-07-08] MEDS: Docusate Oral Soln 100 MG/10 ML UDC GTUBE SCH ×2 (08:45→20:48)
[2021-07-08] MEDS: Piperacillin/Tazobactam 3.375 GM in 0.9 % Sodium Chloride Mini Bag 100 ML IVPB SCH ×3 (08:46→23:57)
[2021-07-08] MEDS: Insulin DETEMIR 100 UNIT/ML X5UNITS SUBQ SCH ×2 (08:58→22:12)
[2021-07-08] MEDS: Norepinephrine 4 MG/254 ML IV.SOLN IVC SCH ×2 (08:59→20:50)
[2021-07-08] MEDS: Budesonide/Formoterol 160/4.5 1 PUFF INH IH SCH ×2 (11:10→19:26)
[2021-07-08] MEDS: Heparin 25,000UNIT/250ML 1/2NS 25,000 UNIT/250 ML IV.SOLN IVC SCH (13:10)
[2021-07-08 16:25] LABS: Amylase 74 Units/L (29-103); Lipase 418 Units/L (11-82)
[2021-07-08] MEDS: levoFLOXacin 750 MG/150 ML 750 MG/150 ML BAG IVPB SCH (16:34)
[2021-07-08] MEDS: SODIUM CITRATE 500 ML CRRT SCH (19:09)
[2021-07-08] MEDS: Calcium Chloride 4,000 MG in 0.9 % Sodium Chloride 1,000 ML CRRT SCH (19:09)
[2021-07-09] MEDS: Cisatracurium 200 MG in 0.9 % Sodium Chloride 180 ML IVC SCH ×6 (00:40→23:15)
[2021-07-09] MEDS: PrismaSATE BGK 4/2.5 5,000 ML CRRT SCH ×10 (01:33→22:23)
[2021-07-09] MEDS: Midazolam HCl 50 MG/100 ML IV.SOLN IVC SCH ×2 (03:11→13:30)
[2021-07-09] MEDS: Ipratropium 1 PUFF INHALER IH SCH ×4 (03:44→21:19)
[2021-07-09 04:09] LABS: Hemoglobin 10.9 g/dL (11.5-15.4); Nucleated Red Blood Cells 3.7 /100 WBC (0); Red Cell Distribution Width 16.9 % (11.5-14.5)
[2021-07-09 04:10] LABS: Hematocrit 36.4 % (35.3-44.9); Mean Corpuscular HGB Conc 29.9 g/dL (31.6-35.5); Mean Corpuscular Hemoglobin 29.8 pg (28.0-33.3); Mean Corpuscular Volume 99.5 fL (83.0-100.0); Mean Platelet Volume 12.7 fL (9.4-12.4); Platelet Count 154 K/mcL (140-400); Red Blood Count 3.66 M/mcL (3.82-4.97)
[2021-07-09 04:18] LABS: Heparin anti-factor XA UFH 0.57 IU/mL (0.30-0.70)
[2021-07-09] MEDS: Artificial Tears SOLN 15 ML BOTTLE BOTH EYES SCH ×5 (04:22→19:44)
[2021-07-09] MEDS: Insulin LISPRO 300 UNITS/3 ML VIAL SUBQ SCH ×5 (04:22→19:48)
[2021-07-09 04:25] LABS: White Blood Count 62.2 K/mcL (4.3-11.1)
[2021-07-09 04:26] LABS: ABG Base Excess -5 mEq/L (-2 to 3); ABG HCO3 23 mEq/L (21-27); ABG Oxygen Saturation 99 % (95-98); ABG PCO2 55 mmHg (35-45); ABG PH 7.23 pH Units (7.32-7.45); ABG PO2 141 mmHg (85-104); ABG TCO2 25 mEq/L (20-26); Blood Gas Modality AF; Blood Gas VT 380 cc
[2021-07-09 04:27] LABS: Albumin 3.1 g/dL (3.5-5.7); Albumin/Globulin Ratio 0.8 (1.1-2.2); Bilirubin,Total 5.2 mg/dL (0.3-1.0); Calcium 8.5 mg/dL (8.6-10.3); Globulin 3.9 g/dL (2.4-3.5); Magnesium 2.7 mg/dL (1.6-2.6); Phosphorous 3.4 mg/dL (2.7-4.5); Potassium 4.4 mEq/L (3.5-5.1)
[2021-07-09 04:36] LABS: VBG Ionized Calcium 1.07 mmol/L (1.15-1.35)
[2021-07-09] MEDS: Levothyroxine Sodium 100 MCG VIAL IVP SCH (05:16)
[2021-07-09] MEDS: FentaNYL (PF) 1,000 MCG/100 ML IV.SOLN IVC SCH ×4 (05:25→21:45)
[2021-07-09 05:30] LABS: Lymphocytes # 2.5 K/mcL (0.6-4.6); Monocytes # 1.2 K/mcL (0.0-1.3)
[2021-07-09 05:31] LABS: Platelet Estimate Normal (Normal); Polychromasia 1+ (Not Present)
[2021-07-09] MEDS: Norepinephrine 4 MG/254 ML IV.SOLN IVC SCH ×3 (05:52→11:11)
[2021-07-09] MEDS ORDERED: Vancomycin 2,000 MG/520 ML IV.SOLN IVPB ONE (06:00)
[2021-07-09] MEDS: Docusate Oral Soln 100 MG/10 ML UDC GTUBE SCH ×2 (07:08→19:43)
[2021-07-09] MEDS: Piperacillin/Tazobactam 3.375 GM in 0.9 % Sodium Chloride Mini Bag 100 ML IVPB SCH ×3 (07:08→23:35)
[2021-07-09] MEDS: Chlorhexidine Rinse 15 ML MOUTHWASH MM SCH ×2 (07:08→19:43)
[2021-07-09] MEDS: Pantoprazole 40 MG VIAL IVP SCH (07:08)
[2021-07-09] MEDS: Budesonide/Formoterol 160/4.5 1 PUFF INH IH SCH ×2 (07:36→21:19)
[2021-07-09] MEDS: Heparin 25,000UNIT/250ML 1/2NS 25,000 UNIT/250 ML IV.SOLN IVC SCH (07:39)
[2021-07-09] MEDS: Insulin DETEMIR 100 UNIT/ML X5UNITS SUBQ SCH ×2 (08:37→19:52)
[2021-07-09] MEDS: Fluconazole 400 MG/200 ML 400 MG/200 ML BAG IVPB SCH (12:36)
[2021-07-09] MEDS: Norepinephrine 8 MG in 0.9 % Sodium Chloride 250 ML IVC SCH ×3 (13:27→21:14)
[2021-07-09] MEDS: Calcium Chloride 4,000 MG in 0.9 % Sodium Chloride 1,000 ML CRRT SCH (14:38)
[2021-07-09] MEDS: SODIUM CITRATE 500 ML CRRT SCH (14:39)
[2021-07-09 17:16] LABS: Bilirubin,Direct 2.9 mg/dL (0.0-0.2); Bilirubin,Indirect 1.5 mg/dL (0.0-1.0); Bilirubin,Total 4.4 mg/dL (0.3-1.0)
[2021-07-09 17:17] LABS: Calcium 8.4 mg/dL (8.6-10.3); Magnesium 2.6 mg/dL (1.6-2.6); Potassium 4.8 mEq/L (3.5-5.1)
[2021-07-09 23:12] LABS: VBG Ionized Calcium 1.14 mmol/L (1.15-1.35)
[2021-07-09 23:33] LABS: Calcium 8.5 mg/dL (8.6-10.3); Magnesium 2.7 mg/dL (1.6-2.6); Phosphorous 4.1 mg/dL (2.7-4.5); Potassium 4.8 mEq/L (3.5-5.1)
[2021-07-10] MEDS: Norepinephrine 8 MG in 0.9 % Sodium Chloride 250 ML IVC SCH ×8 (00:45→23:20)
[2021-07-10] MEDS: PrismaSATE BGK 4/2.5 5,000 ML CRRT SCH ×10 (01:43→19:08)
[2021-07-10] MEDS: Midazolam HCl 50 MG/100 ML IV.SOLN IVC SCH ×3 (02:11→22:33)
[2021-07-10] MEDS: Cisatracurium 200 MG in 0.9 % Sodium Chloride 180 ML IVC SCH ×5 (03:19→20:04)
[2021-07-10] MEDS ORDERED: *HR* Adenosine 6 MG/2 ML VIAL IVP PRN (03:22)
[2021-07-10] MEDS: FentaNYL (PF) 1,000 MCG/100 ML IV.SOLN IVC SCH ×4 (03:38→21:09)
[2021-07-10] MEDS: Heparin 25,000UNIT/250ML 1/2NS 25,000 UNIT/250 ML IV.SOLN IVC SCH ×3 (03:39→22:50)
[2021-07-10] MEDS: Artificial Tears SOLN 15 ML BOTTLE BOTH EYES SCH ×6 (03:50→19:52)
[2021-07-10] MEDS ORDERED: *HR* Adenosine 6 MG/2 ML SYRINGE IVP ONE (03:56)
[2021-07-10 04:16] LABS: ABG Base Excess -8 mEq/L (-2 to 3); ABG HCO3 21 mEq/L (21-27); ABG Oxygen Saturation 95 % (95-98); ABG PCO2 60 mmHg (35-45); ABG PH 7.15 pH Units (7.32-7.45); ABG PO2 99 mmHg (85-104); ABG TCO2 23 mEq/L (20-26); Blood Gas Modality AF; Blood Gas VT 380 cc
[2021-07-10] MEDS ORDERED: Amiodarone Premix 360 MG/200 ML BAG IVC ONE (04:23)
[2021-07-10 04:31] LABS: Nucleated Red Blood Cells 6.9 /100 WBC (0); Red Cell Distribution Width 17.6 % (11.5-14.5)
[2021-07-10 04:32] LABS: Hematocrit 33.9 % (35.3-44.9); Hemoglobin 9.8 g/dL (11.5-15.4); Mean Corpuscular HGB Conc 28.9 g/dL (31.6-35.5); Mean Corpuscular Hemoglobin 29.3 pg (28.0-33.3); Mean Corpuscular Volume 101.5 fL (83.0-100.0); Mean Platelet Volume 12.9 fL (9.4-12.4); Platelet Count 120 K/mcL (140-400); Red Blood Count 3.34 M/mcL (3.82-4.97)
[2021-07-10 04:40] LABS: White Blood Count 60.2 K/mcL (4.3-11.1)
[2021-07-10] MEDS: Insulin LISPRO 300 UNITS/3 ML VIAL SUBQ SCH ×6 (04:50→19:52)
[2021-07-10 04:52] LABS: BUN/Creatinine Ratio 15 (6-26); Blood Urea Nitrogen 24 mg/dL (6-20); Calcium 8.6 mg/dL (8.6-10.3); Carbon Dioxide 20 mEq/L (23-29); Chloride 100 mEq/L (98-107); Glucose 235 mg/dL (70-105); Magnesium 2.6 mg/dL (1.6-2.6); Osmolality,Calculated 284 (280-300); Phosphorous 4.5 mg/dL (2.7-4.5); Potassium 4.8 mEq/L (3.5-5.1); Sodium 131 mEq/L (136-145); Vancomycin,Random 12 mcg/mL; eGFR For African Americans 47 (> 60); eGFR For Non-African Americans 39 (> 60)
[2021-07-10 04:55] LABS: VBG Ionized Calcium 1.15 mmol/L (1.15-1.35)
[2021-07-10 05:01] LABS: Anisocytosis 1+ (Not Present); Lymphocytes # 9.6 K/mcL (0.6-4.6); Monocytes # 1.2 K/mcL (0.0-1.3); Neutrophils # 44.6 K/mcL (1.6-8.9); Platelet Estimate Slight Decrease (Normal); Polychromasia 1+ (Not Present)
[2021-07-10] MEDS: Ipratropium 1 PUFF INHALER IH SCH ×4 (05:25→21:22)
[2021-07-10 05:38] LABS: C-Reactive Protein > 300 mg/L (Less than 10)
[2021-07-10] MEDS ORDERED: Vancomycin 2,000 MG/520 ML IV.SOLN IVPB ONE (06:00)
[2021-07-10] MEDS: Levothyroxine Sodium 100 MCG VIAL IVP SCH (06:10)
[2021-07-10] MEDS: Budesonide/Formoterol 160/4.5 1 PUFF INH IH SCH ×2 (08:02→21:22)
[2021-07-10] MEDS: Chlorhexidine Rinse 15 ML MOUTHWASH MM SCH ×2 (08:23→19:54)
[2021-07-10] MEDS: Docusate Oral Soln 100 MG/10 ML UDC GTUBE SCH ×2 (08:23→08:24)
[2021-07-10] MEDS: Pantoprazole 40 MG VIAL IVP SCH (08:24)
[2021-07-10] MEDS: Piperacillin/Tazobactam 3.375 GM in 0.9 % Sodium Chloride Mini Bag 100 ML IVPB SCH ×2 (08:25→15:08)
[2021-07-10] MEDS: Insulin DETEMIR 100 UNIT/ML X5UNITS SUBQ SCH ×2 (08:25→19:54)
[2021-07-10] MEDS ORDERED: *HR* Metoprolol 5 MG/5 ML VIAL IVP ONE ×2 (08:39→08:41)
[2021-07-10] MEDS ORDERED: Albumin Human 5% 25.0 GM/500 ML IV.SOLN ONE (08:55)
[2021-07-10] MEDS: Phenylephrine 50 MG in 0.9 % Sodium Chloride 250 ML IVC SCH ×5 (09:05→22:43)
[2021-07-10] MEDS: Albumin Human 5% 12.5 GM/250 ML IV.SOLN IVC SCH ×2 (09:13→12:34)
[2021-07-10] MEDS ORDERED: 0.9 % Sodium Chloride 1,000 ML ONE ×2 (09:24→22:21)
[2021-07-10] MEDS: Amiodarone Premix 360 MG/200 ML BAG IVC SCH ×2 (09:27→21:33)
[2021-07-10] MEDS: Calcium Chloride 4,000 MG in 0.9 % Sodium Chloride 1,000 ML CRRT SCH (10:07)
[2021-07-10] MEDS: *HR* Heparin 5,000 UNIT/ML VIAL IVP PRN ×2 (10:08→22:38)
[2021-07-10 13:29] LABS: Albumin 2.7 g/dL (3.5-5.7); Albumin/Globulin Ratio 0.9 (1.1-2.2); Bilirubin,Direct 3.5 mg/dL (0.0-0.2); Bilirubin,Indirect 1.2 mg/dL (0.0-1.0); Bilirubin,Total 4.7 mg/dL (0.3-1.0); Globulin 3.1 g/dL (2.4-3.5); Total Protein 5.8 g/dL (6.4-8.9)
[2021-07-10 13:34] LABS: Thyroid Stimulating Hormone 1.748 mcIU/mL (0.340-5.600)
[2021-07-10] MEDS: Fluconazole 400 MG/200 ML 400 MG/200 ML BAG IVPB SCH (13:44)
[2021-07-10] MEDS: levoFLOXacin 750 MG/150 ML 750 MG/150 ML BAG IVPB SCH (15:08)
[2021-07-10] MEDS ORDERED: Vasopressin 40 UNIT in D5% in Water 100 ML IVC SCH (15:45)
[2021-07-10] MEDS: SODIUM CITRATE 500 ML CRRT SCH (19:52)
[2021-07-10] MEDS ORDERED: *HR* Heparin 5,000 UNIT/ML VIAL ONE (22:27)
[2021-07-10] MEDS ORDERED: Norepinephrine 16 MG in 0.9 % Sodium Chloride 500 ML IVC SCH (23:30)
[2021-07-11] MEDS: Artificial Tears SOLN 15 ML BOTTLE BOTH EYES SCH (00:02)
[2021-07-11] MEDS: Insulin LISPRO 300 UNITS/3 ML VIAL SUBQ SCH (00:16)
[2021-07-11] MEDS: Piperacillin/Tazobactam 3.375 GM in 0.9 % Sodium Chloride Mini Bag 100 ML IVPB SCH (00:17)
[2021-07-11 00:21] VITALS: TEMP 100.2
[2021-07-11] MEDS: Cisatracurium 200 MG in 0.9 % Sodium Chloride 180 ML IVC SCH (00:45)
[2021-07-11 02:15] VITALS: BP 30/26; PULSE 77; O2SAT 81
== END 2021-07-11 02:12 | disposition expired | DRG 720 ==
LOC: 3ANU → SUATTDRO 19:17 → 2NNU 06-28 22:27 → ICNU 06-30 00:24
PROVIDERS: ADMIT Internal Medicine; ATTEND Internal Medicine